=== PATIENT | female | born 1990 | race Caucasian/White ===

== ENCOUNTER 2018-06-07 04:22 | Emergency (ER) | payer OTHER ==
[~2018-06-07] VITALS: Ht 157.5 cm; Wt 65.5 kg
[2018-06-07 04:26] VITALS: Ht 157.5 cm; Wt 65.5 kg
[2018-06-07] MEDS ORDERED: CEPH-443 PO ×2 (06:57→09:23)
[2018-06-07] MEDS ORDERED: SULF1TAB31 PO ×2 (06:57→09:23)
[2018-06-07] MEDS ORDERED: NAPR-985 PO ×2 (06:57→09:23)
[2018-06-07] MEDS: CEFTRIAXONE 1 GM INJ IM ONE ×2 (07:00→07:07)
[2018-06-07] MEDS: LIDOCAINE 1% (MPF) 5 ML VIAL INJ ONE ×2 (07:00→07:07)
[2018-06-07] MEDS ORDERED: TRIMETHOPRIM/SULFAMETHOX (DS) TAB PO ONE (07:30)
--- NOTE | 2018-06-07 09:23 | ERD ---
ER Documentation Chief Complaint Chief Complaint LT FOREARM PAIN, REDNESS AND SWELLING X2 DAYS HPI 28-year-old female presents the emergency department with multiple complaints. First, she has been using methamphetamine and injecting drugs. Most recently, she injected drugs into her left arm. Since then, she had a painful red bump in her left arm. Associated with this she has had no numbness, tingling or loss of function of the extremity. She is also complaining of nonspecific myalgias and discomforts with no significant fevers. She states that she had unprotected sex and is concerned that she may have been exposed to a sexually transmitted disease. She denies any significant vaginal discharge or vaginal pain. Patient is somewhat tangential in her history but denies any suicidal or homicidal thoughts. ROS All systems reviewed and are negative except as per history of present illness. Medications Home Meds Active Scripts Cephalexin* (Keflex*) 500 Mg Capsule, 500 MG PO QID for 7 Days, CAP Prov:LOLA BARBER PA-C 06/07/18 Sulfamethoxazole/Trimethoprim* (Bactrim Ds* Tablet) 1 Each Tablet, 1 TAB PO BID, #14 TAB Prov:LOLA BARBER PA-C 06/07/18 Naproxen* (Naprosyn*) 500 Mg Tablet, 500 MG PO BID PRN for PAIN AND/OR INFLAMMATION, #30 TAB Prov:LOLA BARBER PA-C 06/07/18 Allergies Allergies: Coded Allergies: No Known Allergy (Unverified , 06/07/18) PMhx/Soc Hx Neurological Disorder: No Hx Respiratory Disorders: No Hx Psychiatric Problems: No Hx Alcohol Use: No Hx Substance Use: Yes Hx Tobacco Use: Yes Smoking Status: Current every day smoker Physical Exam Vitals Vital Signs Date Temp Pulse Resp B/P (MAP) Pulse Ox O2 O2 Flow FiO2 Time Delivery Rate 06/07/18 97.6 109 19 118/68 100 04:26 (85) Physical Exam GENERAL: The patient is well developed and appropriate for usual state of health in no apparent distress HEENT: Pupils equal, round, and reactive to light. EOMI. There is no scleral icterus. NECK: C-spine is soft and supple, there is no meningismus. There is no cervical lymphadenopathy. LUNGS: Clear to auscultation bilaterally. There are no rales, wheezes or rhonchi. HEART: Regular rate and rhythm, no murmurs, clicks, rubs or gallops. ABDOMEN: Soft, non-tender, non-distended. There are bowel sounds in all four quadrants. No rebound or guarding. EXTREMITIES: There is no peripheral cyanosis or edema. No focal swelling or erythema. NEURO: The patient moves all four extremities with 5/5 strength. Cranial nerves II - XII are intact. Normal gait. Alert and oriented SKIN: Patient has a small abscess in the left forearm. No fluctuance. No compartment syndrome noted. Patient is neurovascularly intact distally. HEME/LYMPHATIC: There is no evidence of excessive bruising or lymphedema. PSYCHIATRIC: Pressured speech with tangential thought process. No suicidal homicidal thoughts. No auditory visual hallucinations. She appears able to express a care plan for herself. She appears able to negotiate the community. Result Diagram: 06/07/18 0838 06/07/18 0837 Results 24 hrs Laboratory Tests Test 06/07/18 07:50 06/07/18 07:56 06/07/18 08:37 06/07/18 08:38 Urine Color YELLOW Urine Clarity SLIGHTLY CLOUDY Urine pH 7.0 Urine Specific 1.017 [place] Urine Ketones NEGATIVE mg/dL Urine Nitrite POSITIVE mg/dL Urine Bilirubin NEGATIVE mg/dL Urine 2+ mg/dL Urobilinogen Urine Leukocyte 1+ Leatha/ul Esterase Urine Microscopic 3 /HPF RBC Urine Microscopic 8 /HPF WBC Urine Squamous FEW /HPF Epithelial Cells Urine Bacteria FEW /HPF Urine Mucus FEW /HPF Urine Hemoglobin 1+ mg/dL Urine Glucose NEGATIVE mg/dL Urine Total NEGATIVE mg/dl Protein Urine Opiates NEGATIVE Screen Urine NEGATIVE Barbiturates Urine POSITIVE Amphetamines Screen Urine NEGATIVE Benzodiazepines Screen Urine Cocaine NEGATIVE Screen Urine POSITIVE Cannabinoids POC Beta HCG, NEGATIVE Qualitative Sodium Level 141 mmol/L Potassium Level 3.5 mmol/L Chloride Level 100 mmol/L Carbon Dioxide 28 mmol/L Level Anion Gap 13 Blood Urea 11 mg/dl Nitrogen Creatinine 0.43 mg/dl Est Glomerular > 60 mL/min Filtrat Rate mL/min Glucose Level 77 mg/dl Calcium Level 9.7 mg/dl Total Bilirubin 0.2 mg/dl Direct Bilirubin 0.00 mg/dl Indirect 0.2 mg/dl Bilirubin Aspartate Amino 34 IU/L Transf (AST/SGOT) Alanine 31 IU/L Aminotransferase (ALT/SGPT) Alkaline 89 IU/L Phosphatase Total Protein 8.3 g/dl Albumin 4.6 g/dl Globulin 3.70 g/dl Albumin/Globulin 1.24 Ratio White Blood Count 7.2 10^3/ul Red Blood Count 4.61 10^6/ul Hemoglobin 12.8 g/dl Hematocrit 38.8 % Mean Corpuscular 84.2 fl Volume Mean Corpuscular 27.8 pg Hemoglobin Mean Corpuscular 33.0 g/dl Hemoglobin Concen t Red Cell 12.8 % Distribution Width Platelet Count 402 10^3/UL Mean Platelet 8.9 fl Volume Immature 0.100 % Granulocytes % Neutrophils % 58.5 % Lymphocytes % 30.1 % Monocytes % 9.3 % Eosinophils % 1.4 % Basophils % 0.6 % Nucleated Red 0.0 /100WBC Blood Cells % Immature 0.010 10^3/ul Granulocytes # Neutrophils # 4.2 10^3/ul Lymphocytes # 2.2 10^3/ul Monocytes # 0.7 10^3/ul Eosinophils # 0.1 10^3/ul Basophils # 0.0 10^3/ul Nucleated Red 0.0 10^3/ul Blood Cells # Current Medications Medications Dose Sig/Mohinder Start Time Status Last (Trade) Ordered Route PRN Stop Time Admin Dose Reason Admin Ceftriaxone 1 gm ONCE ONCE 06/07/18 DC Sodium IM 07:00 (Rocephin) 06/07/18 07:01 Lidocaine 5 ml ONCE ONCE 06/07/18 DC (Xylocaine INJ 07:00 1% (Mpf)) 06/07/18 07:01 1 tab ONCE ONCE 06/07/18 DC 06/07/18 Trimethoprim/ PO 07:30 08:37 06/07/18 07:32 Sulfamethoxaz ole (Bactrim (Ds)) Procedures/MDM Patient was taken to a room, seen and examined Medical decision m[age]-year-old female presents the emergency department with a drug use associated abscess of her left forearm. This does not seem to require I&D at this time but will clearly be placed on antibiotics. She also has nonspecific symptoms which seem to be related to her drugs of abuse issue, but without evidence of significant sepsis or other systemic concerns. She is otherwise nontoxic and seems appropriate for discharge. Departure Diagnosis: Primary Impression: Cellulitis Condition: Stable Patient Instructions: Cellulitis Referrals: COMMUNITY CLINICS YOU HAVE RECEIVED A MEDICAL SCREENING EXAM AND THE RESULTS INDICATE THAT YOU DO NOT HAVE A CONDITION THAT REQUIRES URGENT TREATMENT IN THE EMERGENCY DEPARTMENT. FURTHER EVALUATION AND TREATMENT OF YOUR CONDITION CAN WAIT UNTIL YOU ARE SEEN IN YOUR DOCTORS OFFICE WITHIN THE NEXT 1-2 DAYS. IT IS YOUR RESPONSIBILITY TO MAKE AN APPOINTMENT FOR FOLOW-UP CARE. IF YOU HAVE A PRIMARY DOCTOR --you should call your primary doctor and schedule an appointment IF YOU DO NOT HAVE A PRIMARY DOCTOR YOU CAN CALL OUR PHYSICIAN REFERRAL HOTLINE AT IF YOU CAN NOT AFFORD TO SEE A PHYSICIAN YOU CAN CHOSE FROM THE FOLLOWING [facility] [address] [facility]. [facility] [address] [facility]. [facility] [address] [facility] [facility] [address] [facility]. [facility] [place] [address] [facility]. [facility] [address] Additional Instructions: FOLLOW UP WITH YOUR PRIMARY CARE PHYSICIAN TOMORROW.Return to this facility if you are not improving as expected. RASHAD ANDERSEN Jun 07, 2018 09:23
[2018-06-07 09:34] VITALS: BP 128/73; PULSE 89; RESP 18
== END 2018-06-07 09:38 | disposition home or self-care (01) ==
LOC: FTE 04:22
DX: L03.114 Cellulitis of left upper limb (principal); F17.210 Nicotine dependence, cigarettes, uncomplicated; R07.9 Chest pain, unspecified
CPT/HCPCS: 71045; 80053; 80307; 81001; 81025; 85025; 86703; 87591; J0696; Z7502; Z7610